=== PATIENT | female | born 1990 | race Caucasian/White ===

== ENCOUNTER 2016-11-14 19:01 | Emergency (ER) | payer MEDICARE, MEDICAID ==
[2016-11-14 19:48] VITALS: BP 139/79
--- NOTE | 2016-11-14 19:56 | UC ---
Throat Pain/Nasal Oskar HPI - HPI Summary HPI Summary: complaint of left arm pain started today after car door hit her in the arm now it hurts to move her arm up and down constant aching non radiating pain took some aleve without relief complaint of nasal congestion and cough that started 2 daysa go both of her ears feel achy, throat feels scratchy cough keeping her up at night her back muscle hurt when she is coughing so much denies fever and chills using OTC cold medications without relief - History of Current Complaint Chief Complaint: UCGeneralIllness Stated Complaint: COUGH,LEFT ARM INJURY Time Seen by Provider: 11/14/16 19:50 Hx Obtained From: Patient Hx Last Menstrual Period: 2 WKS AGO - Allergies/Home Medications Allergies/Adverse Reactions: Allergies Allergy/AdvReac Type Severity Reaction Status Date / Time Metoclopramide [From [facility] [place]] Allergy Mild Hives Verified 11/14/16 19:38 Home Medications: Home Medications Naproxen Sodium 440 mg PO ONCE PRN 11/14/16 [History Confirmed 11/14/16] Omeprazole CAP* [Prilosec CAP* 20 MG] 20 mg PO DAILY 11/14/16 [History Confirmed 11/14/16] PMH/Surg Hx/FS Hx/Imm Hx Previously Healthy: Yes Endocrine History Of: Denies: Diabetes, Thyroid Disease, Hyperthyroidism, Hypothyroidism, Dyslipidemia Cardiovascular History Of: Reports: Cardiac Disorders - leaky valve Denies: Hypertension, Pacemaker/ICD, Myocardial Infarction, Congestive Heart Failure, Atrial Fibrillation, Deep Vein Thrombosis, Bleeding Disorders Respiratory History Of: Denies: COPD, Asthma GI/ History Of: Reports: Ulcer - stomach ulcer diagnosed over one year ago. Denies: Gastroesophageal Reflux, Gastrointestinal Bleed, Gall Bladder Disease , Kidney Stones, Diverticulitis, Renal Disease, Urosepsis Neurological History Of: Denies: TIA Psychological History Of: Denies: Anxiety, Depression, Bipolar Disorder, Schizophrenia, Post Traumatic Stress Disorder Cancer History Of: Denies: Lung Cancer, Colorectal Cancer, Breast Cancer, Prostate Cancer, Cervical Cancer Other History Of: Negative For: HIV, Hepatitis B, Hepatitis C, Anticoagulant Therapy - Surgical History Surgical History: Yes Surgery Procedure, Year, and Place: GB. C section. Hernia - Family History Known Family History: Positive: None, Hypertension, Other - mom has history of low back strain Negative: Cardiac Disease, Diabetes - Social History Occupation: Employed Part-time Lives: With Family Alcohol Use: None Substance Use Type: None Smoking Status (MU): Never Smoked Tobacco Have You Smoked in the Last Year: No Household Exposure Type: Cigarettes - Immunization History Most Recent Influenza Vaccination: none Review of Systems Skin: Negative Eyes: Negative ENT: Ear Ache, Nasal Discharge Respiratory: Cough Cardiovascular: Negative Gastrointestinal: Negative Genitourinary: Negative Motor: Negative Neurovascular: Negative Musculoskeletal: Other: - left arm pain Neurological: Negative Psychological: Negative All Other Systems Reviewed And Are Negative: Yes Physical Exam Triage Information Reviewed: Yes Appearance: No Pain Distress, Well-Nourished, Obese Vital Signs: Initial Vital Signs Temp 98.1 F 11/14/16 19:31 Pulse 100 11/14/16 19:31 Resp 18 11/14/16 19:31 BP 139/79 11/14/16 19:31 Pulse Ox 96 11/14/16 19:31 Vital Signs Reviewed: Yes Eyes: Positive: Conjunctiva Clear ENT: Positive: Pharyngeal erythema, Nasal congestion, Nasal drainage, TMs normal , Other: - no sinus tenderness. Negative: TM bulging, TM red Neck: Positive: No Lymphadenopathy Respiratory: Positive: Lungs clear, Normal breath sounds, No respiratory distress Cardiovascular: Positive: RRR, No Murmur, Pulses Normal Abdomen Description: Positive: Nontender, Soft, Distended Bowel Sounds: Positive: Present Musculoskeletal: Positive: Other: - left forearm- tenderness ,edema on proximal forearm , no tenderness in elbow joint full ROM no tenderness in left wrist or left shoulder Neurological: Positive: Alert Psychological Exam: Normal Skin Exam: Normal Throat Pain/Nasal Course/Dx - Differential Dx/Diagnosis Differential Diagnosis/HQI/PQRI: Pharyngitis, URI, Other - left arm contusion, left arm fracture Provider Diagnoses: left arm contusion, URI Discharge - Discharge Plan Condition: Stable Disposition: HOME Patient Education Materials: Upper Respiratory Infection (ED), Contusion in Adults (ED) Referrals: Jimena Rodriguez PA [Primary Care Provider] - Additional Instructions: VIRAL UPPER RESPIRATORY INFECTION (COMMON COLD) What is Viral Upper Respiratory Infection? Viral upper respiratory infection is the medical term for the common cold. Respiratory infections can be caused by either a virus or bacteria. The common cold is caused by a virus. The virus travels through the air and can be passed easily from one person to another. This is one reason that it is so important to cover your mouth when you cough or sneeze. When you cover your mouth you will get the virus on your hands. If you touch something with that hand the virus is spread to the object you touch. Because of this you should be sure to wash your hands often when you have a cold. Symptoms usually begin 1 to 3 days after the virus takes hold in your body. Other people can catch your cold even before you start to notice symptoms, which is one reason why colds are hard to prevent. Symptoms May Include: Scratchiness or tickling in the throat Sore throat Stuffy nose Generalized aches and pains Coughing or sneezing Feeling tired Treatment Recommendations: Drink plenty of clear, nonalcoholic fluids, such as water, sports drinks, or juice. For example, an average adult should drink 8 unces every hour, a child 6 to 10 years should drink 4 ounces every hour, and a child under 6 should drink 1 to 2 ounces every hour. You should rest as much as possible. You can use a cool-mist humidifier or steam vaporizer to increase air moisture. This will make it easier to breathe. Remember that a steam vaporizer may contain hot water that can cause severe escoto. If you smoke, stopsmoke irritates bronchial passages. If you are coughing up mucus, and milk seems to make the sputum thicker, do not eat or drink foods that contain milk. You want to try to cough up mucous whenever possible so that you dont get pneumonia. Do not use cough suppressant medicine without your healthcare providers [place]. You should take all medications prescribed until completely gone, or as instructed. Non-prescription medicine such as acetaminophen (Tylenol) or ibuprofen (Motrin , Advil) may help your aches, pains, and fever. Do not take someone else's medicine, or penicillin tablets that you may have saved. You could cause a more serious problem than you already have. Don't bundle up to sweat out a fever. It only makes your fever worse. If you feel cold, cover up; if you feel warm, dress lightly.
--- NOTE | 2016-11-14 20:23 | RAD ---
Indication: Forearm injury. 2 views of the forearm demonstrates no fracture. No other bone or joint the left. IMPRESSION: No fracture of the forearm is noted.
[2016-11-14] MEDS ORDERED: Benzonatate CAP* 100 MG PO ONE (20:33)
== END 2016-11-14 20:46 | disposition home or self-care (01) ==
LOC: UCCORT 19:01
DX: J06.9 Acute upper respiratory infection, unspecified (principal); S50.12XA Contusion of left forearm, initial encounter; W22.8XXA Striking against or struck by other objects, initial encounter; Y93.9 Activity, unspecified; Y92.9 Unspecified place or not applicable; Z88.8 Allergy status to other drugs, medicaments and biological substances; Z77.22 Contact with and (suspected) exposure to environmental tobacco smoke (acute) (chronic)
CPT/HCPCS: 99212; A9270-GY; G0463

== ENCOUNTER 2017-01-15 15:35 | Emergency (ER) | payer MEDICARE, MEDICAID ==
[2017-01-15 15:54] VITALS: BP 113/64
--- NOTE | 2017-01-15 16:22 | UC ---
Back Pain HPI - History of Current Complaint Chief Complaint: UCGeneralIllness Stated Complaint: BACK PAIN/VOMITING/COUGH Time Seen by Provider: 01/15/17 16:14 Hx Obtained From: Patient Hx Last Menstrual Period: 1 WK AGO ?: No Onset/Duration: Sudden Onset - yesterday back pain., Worse Since - this morning started radiating down the leg with tingling and weakness. Timing: Constant Severity Initially: Moderate Severity Currently: Severe Back Pain: Is Discrete @ - low back, Radiates To - down legs Character: Sharp Aggravating: Movement, Walking Alleviating: Rest Associated Signs And Symptoms: Positive: Fever, Weakness, Tingling, Pain with Weight Bearing. Negative: Bladder Incontinence, Bowel Incontinence Related History: Similar Episode Dx As - sciatica - Risk Factors AAA Risk Factors: Negative TAD Risk Factors: Family Hx Cauda Equina Risk Factors: Negative Epidural Abscess Risk Factors: Fever - Allergies/Home Medications Allergies/Adverse Reactions: Allergies Allergy/AdvReac Type Severity Reaction Status Date / Time Metoclopramide [From Reglan] Allergy Mild Hives Verified 01/15/17 15:54 PMH/Surg Hx/FS Hx/Imm Hx Endocrine History Of: Denies: Diabetes, Thyroid Disease, Hyperthyroidism, Hypothyroidism, Dyslipidemia Cardiovascular History Of: Reports: Cardiac Disorders - leaky valve Denies: Hypertension, Pacemaker/ICD, Myocardial Infarction, Congestive Heart Failure, Atrial Fibrillation, Deep Vein Thrombosis, Bleeding Disorders Respiratory History Of: Denies: COPD, Asthma GI/ History Of: Reports: Ulcer - stomach ulcer diagnosed over one year ago. Denies: Gastroesophageal Reflux, Gastrointestinal Bleed, Gall Bladder Disease , Kidney Stones, Diverticulitis, Renal Disease, Urosepsis Neurological History Of: Denies: TIA Psychological History Of: Denies: Anxiety, Depression, Bipolar Disorder, Schizophrenia, Post Traumatic Stress Disorder Cancer History Of: Denies: Lung Cancer, Colorectal Cancer, Breast Cancer, Prostate Cancer, Cervical Cancer Other History Of: Negative For: HIV, Hepatitis B, Hepatitis C, Anticoagulant Therapy - Surgical History Surgical History: Yes Surgery Procedure, Year, and Place: GB. C section. 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 Lives: With Family Alcohol Use: Rare Substance Use Type: None Smoking Status (MU): Never Smoked Tobacco Have You Smoked in the Last Year: No Household Exposure Type: Cigarettes - Immunization History Most Recent Influenza Vaccination: none Review of Systems Constitutional: Fever Gastrointestinal: Vomiting Neurological: Headache All Other Systems Reviewed And Are Negative: Yes Physical Exam Triage Information Reviewed: Yes Appearance: Ill-Appearing, Pain Distress, Obese Vital Signs: Initial Vital Signs Temp 101.1 F 01/15/17 15:45 Pulse 116 01/15/17 15:45 Resp 32 01/15/17 15:45 BP 113/64 01/15/17 15:45 Pulse Ox 95 01/15/17 15:45 Vital Signs Reviewed: Yes Eyes: Positive: Conjunctiva Clear ENT Exam: Normal Neck exam: Normal Respiratory Exam: Normal Cardiovascular: Positive: RRR, No Murmur Bowel Sounds: Positive: Present Musculoskeletal: Positive: ROM Limited @ - unable to move low back. Neurological: Positive: Other: - decreased pinprick sensation in the left leg. Psychological Exam: Normal Skin Exam: Normal Back Pain Course/Dx - Differential Dx/Diagnosis Differential Diagnosis/HQI/PQRI: Cauda Equina Syndrome, Epidural Abscess, Herniated Disc Provider Diagnoses: Lumbar radiculopathy. gastroenteritis - Physician Notifications Discussed Patient Care With: Dr. Martinez Time Discussed With Above Provider: 16:41 Instructed by Provider To: Transfer - To [facility] Discharge - Discharge Plan Condition: Guarded Disposition: TRANS HIGHER LVL OF CARE FAC
== END 2017-01-15 16:53 | disposition short-term general hospital (02) ==
LOC: UCCORT 15:35
DX: M54.16 Radiculopathy, lumbar region (principal); K52.9 Noninfective gastroenteritis and colitis, unspecified; E66.9 Obesity, unspecified; Z88.8 Allergy status to other drugs, medicaments and biological substances; Z77.22 Contact with and (suspected) exposure to environmental tobacco smoke (acute) (chronic)
CPT/HCPCS: 99212; G0463